=== PATIENT | male | born 1965 | race Caucasian/White ===

== ENCOUNTER 2023-01-17 19:14 | Inpatient (IN) | payer SELFPAY ==
[~2023-01-17 19:14] MED LIST: Iopamidol-370 76% 500 ML 1 ML ONE
[2023-01-17 20:19] LABS: Bacteria/HPF None Seen HPF (None Seen); Bilirubin Negative (Negative); Blood, Urine Negative (Negative); Clarity Clear (Clear); Glucose, Urine (Dipstick) Greater than 1000 mg/dL (Negative); Ketone, Urine 60 mg/dL (Negative); Leukocyte Negative Leu/uL (Negative); Nitrite Negative (Negative); Protein, Urine (Dipstick) 30 mg/dL (Neg-Trace); RBC/HPF 0-3 HPF (0-3); Specific Gravity, Urine 1.024 (1.002-1.036); Squamous Epithelial None Seen HPF (0-3); Urobilinogen Normal mg/dL (Less than 2); WBC/HPF 0-3 HPF (0-3); pH, Urine 7.5 (5.0-9.0)
[2023-01-17 20:21] LABS: Amphetamine Detected (NotDetected); Barbiturates Screen Not Detected (NotDetected); Benzodiazepine Screen Not Detected (NotDetected); Cocaine Metabolite Screen Not Detected (NotDetected); Methadone Not Detected (NotDetected); Methamphetamine Detected (NotDetected); Opiate Screen Not Detected (NotDetected); Oxycodone Screen Not Detected (NotDetected); Phencyclidine (PCP) Not Detected (NotDetected); THC/Cannabinoid Screen Detected (NotDetected); Tricyclic Screen Not Detected (NotDetected)
[2023-01-17 21:24] LABS: #Lymphocytes 1.1 thou/uL (1.20-3.40); #Monocytes 0.6 thou/uL (0.11-0.59); #Neutrophils 17.5 thou/uL (1.40-6.50); %Basophils 0.2 % (0.0-1.0); %Eosinophils 0.1 % (0.0-10.0); %Lymphocytes 5.8 % (21.0-51.0); %Monocytes 3.3 % (0.0-10.0); %Neutrophils 90.7 % (42.0-75.0); Hemoglobin 15.4 g/dL (14.0-18.0); Mean Corpuscular HGB CONC 34.5 g/dL (32.0-36.0); Mean Corpuscular Hemoglobin 31.8 pg (27.0-31.0); Mean Corpuscular Volume 92.2 fl (78.0-98.0); Mean Platelet Volume 9.2 fL (7.4-10.4); Platelet Count 382 10x3/uL (130-400); RBC Distribution Width 11.7 % (11.5-14.5); Red Blood Cell (RBC) Count 4.83 mill/uL (4.70-6.10); White Blood Cell (WBC) Count 19.4 10x3/uL (4.8-10.8)
[2023-01-17 21:39] LABS: ALT (SGPT) 15 U/L (8-55); AST (SGOT) 14 U/L (5-34); Acetaminophen Less than 10.0 mcg/mL (10.0-30.0); Albumin 4.5 g/dL (3.5-5.0); Alcohol Less than 10 mg/dL (Less than 10); Alkaline Phosphatase 174 U/L (40-110); Anion Gap 31 mmol/L (10-20); BUN (Urea Nitrogen) 20 mg/dL (8.4-25.7); CK (CPK) 276 U/L (30-200); Calc. Creatinine Clearance 0 mL/min (70-130); Calcium 10.5 mg/dL (7.8-10.44); Carbon Dioxide 22 mmol/L (22-29); Chloride 92 mmol/L (98-107); Estimated GFR 43; Globulin 3.6 g/dL (2.4-3.5); Potassium 4.8 mmol/L (3.5-5.1); Protein, Total 8.1 g/dL (6.0-8.3); Salicylate Less than 8.0 mg/dL (15.0-30.0); Sodium 140 mmol/L (136-145)
[2023-01-17 21:42] LABS: Glucose 635 mg/dL (70-105)
[2023-01-17 22:06] LABS: CKMB 2.6 ng/mL (0-6.6)
[2023-01-17] MEDS ORDERED: INSULIN REGULAR IN 0.9 % NACL 100 UNIT/100 ML BAG ONE ×2 (22:13→22:28)
[2023-01-17] MEDS ORDERED: Insulin Regular 300 UNITS/3 ML VIAL ONE ×2 (22:13)
[2023-01-17 22:17] LABS: Actual Bicarbonate (HCO3v) 27 mEq/L (22-28); Base Excess 1.3 mEq/L (-2.0 to +3.0); Calcium, Ionized (venous) 1.12 mmol/L (1.16-1.32); Chloride (VBG) 93 mmol/L (98-106); Hemoglobin (Hb) 15.2 g/dL (13.1-17.2); Potassium (VBG) 5.22 mmol/L (3.70-5.30); Sodium 139.4 mmol/L (133-146); pH (venous) 7.37 (7.32-7.43)
[2023-01-17] MEDS ORDERED: Aspirin 300 MG Suppository ONE (22:32)
[2023-01-17] MEDS ORDERED: D5 1/2 NS w/20 mEq KCL 1,000 ML ONE (22:40)
[2023-01-17] MEDS ORDERED: Electrolyte Replacement Protocol 1 EACH IVPB ONE (22:48)
[2023-01-17] MEDS ORDERED: NS 0.9% w/ 20 MEQ KCL 1,000 ML IV PRN ×2 (22:48)
[2023-01-17] MEDS ORDERED: Dextrose 50% Abboject 50 ML SYRINGE SLOW IVP PRN (22:48)
[2023-01-17] MEDS ORDERED: Dextrose 5 %-0.45 % NaCl 1,000 ML IV PRN (22:48)
[2023-01-17] MEDS ORDERED: Sodium Chloride 0.9% 1,000 ML IV PRN ×4 (22:48)
[2023-01-17] MEDS ORDERED: Electrolyte Replacement Protocol FS PRN (23:00)
[2023-01-17] MEDS ORDERED: HUMULIN R 100 UNITS in Sodium Chloride 0.9% 100 ML IVPB SCH (23:00)
[2023-01-18] MEDS: Lorazepam 2 MG/ML VIAL SLOW IVP SCH ×2 (00:23→05:16)
[2023-01-18 00:27] LABS: Lactic Acid 9.3 mmol/L (0.5-2.2)
[2023-01-18 00:27] LABS: Anion Gap 25 mmol/L (10-20); BUN (Urea Nitrogen) 22 mg/dL (8.4-25.7); Calc. Creatinine Clearance 0 mL/min (70-130); Calcium 9.7 mg/dL (7.8-10.44); Carbon Dioxide 20 mmol/L (22-29); Chloride 99 mmol/L (98-107); Estimated GFR 49; Sodium 140 mmol/L (136-145)
[2023-01-18 00:31] LABS: Glucose 466 mg/dL (70-105)
[2023-01-18] MEDS ORDERED: Lorazepam 2 MG/ML VIAL IM PRN (00:47)
[2023-01-18] MEDS ORDERED: Ondansetron ODT 4 MG TAB PO PRN (00:47)
[2023-01-18] MEDS ORDERED: Lorazepam 1 MG TAB PO PRN (00:47)
[2023-01-18 00:53] VITALS: BMI 16.1
[2023-01-18 00:59] LABS: Hemoglobin A1c 11.8 % (4.0-6.0)
[2023-01-18 01:10] LABS: Magnesium 1.5 mg/dL (1.6-2.6); Phosphorus 2.9 mg/dL (2.3-4.7)
[2023-01-18] MEDS ORDERED: Vancomycin 1 GM in Premix Bag 1 BAG IVPB SCH (01:15)
[2023-01-18 01:16] LABS: Troponin I 0.052 ng/mL (< 0.028)
[2023-01-18] MEDS: Thiamine HCl 200 MG/2 ML VIAL SLOW IVP SCH (01:40)
[2023-01-18] MEDS ORDERED: Piperacillin/Tazobactam 3.375 GM in Sodium Chloride 0.9% 100 ML IVPB SCH ×2 (02:00→06:00)
[2023-01-18 02:37] LABS: Anion Gap 24 mmol/L (10-20); BUN (Urea Nitrogen) 20 mg/dL (8.4-25.7); Calc. Creatinine Clearance 43 mL/min (70-130); Calcium 9.4 mg/dL (7.8-10.44); Carbon Dioxide 18 mmol/L (22-29); Chloride 102 mmol/L (98-107); Estimated GFR 60; Glucose 297 mg/dL (70-105); Potassium 4.3 mmol/L (3.5-5.1); Sodium 140 mmol/L (136-145)
[2023-01-18] MEDS ORDERED: Magnesium 2 GM/50 ML(in water) 2 GM in Premix Bag 1 BAG IVPB SCH (02:45)
[2023-01-18 02:48] LABS: HBCM Index 0.08 S/CO (0-0.79); HBSAg Index 0.26 S/CO (0-0.99); HIV (1/2) Antibody/Antigen Non-Reactive (NonReactive); Hep A IgM AB Non-Reactive (NonReactive); Hep A IgM S/CO 0.51 S/CO (0-0.79); Hep B Surf Ag Non-Reactive S/CO (NonReactive); Hep C IgG Ab Non-Reactive (NonReactive); Hep C Index 0.08 S/CO (0-0.79); Hepatitis B Core IgM Abs Non-Reactive (NonReactive)
[2023-01-18 03:44] LABS: Lactic Acid 6.9 mmol/L (0.5-2.2)
[2023-01-18] MEDS: D5 1/2 NS w/20 mEq KCL 1,000 ML IV PRN ×2 (03:46→07:37)
[2023-01-18 03:53] LABS: SARS-CoV-2 NAA Rapid Test Not Detected (NotDetected)
[2023-01-18 04:01] LABS: Band 10 % (5-11); Hemoglobin 13.2 g/dL (14.0-18.0); Lymphocytes 9 % (21-51); MDiff Complete? YES; Mean Corpuscular Hemoglobin 31.9 pg (27.0-31.0); Mean Corpuscular Volume 93.8 fl (78.0-98.0); Mean Platelet Volume 9.4 fL (7.4-10.4); Monocytes 3 % (0-10); Neutrophil 78 % (42-75); Platelet Count 290 10x3/uL (130-400); Platelet Morphology Comment Appears Adequate; RBC Distribution Width 11.9 % (11.5-14.5); RBC Morphology Normal; Red Blood Cell (RBC) Count 4.14 mill/uL (4.70-6.10); White Blood Cell (WBC) Count 20.4 10x3/uL (4.8-10.8)
[2023-01-18 06:16] LABS: Magnesium 1.7 mg/dL (1.6-2.6)
[2023-01-18 07:36] LABS: Anion Gap 18 mmol/L (10-20); BUN (Urea Nitrogen) 22 mg/dL (8.4-25.7); Calc. Creatinine Clearance 63 mL/min (70-130); Calcium 8.7 mg/dL (7.8-10.44); Carbon Dioxide 21 mmol/L (22-29); Chloride 105 mmol/L (98-107); Estimated GFR 95; Glucose 168 mg/dL (70-105); Potassium 4.5 mmol/L (3.5-5.1); Sodium 139 mmol/L (136-145)
[2023-01-18 07:42] LABS: Troponin I 0.057 ng/mL (< 0.028)
[2023-01-18] MEDS ORDERED: Dextrose 5% in Water 1,000 ML IV PRN (08:44)
[2023-01-18] MEDS: Folic Acid 1 MG TAB PO SCH (08:54)
[2023-01-18] MEDS: Lactated Ringer's 1,000 ML IV SCH ×2 (08:56→18:04)
[2023-01-18] MEDS: Multivit, Therapeutic 1 TAB PO SCH (08:56)
[2023-01-18] MEDS: hydrALAZINE 20 MG/ML VIAL SLOW IVP PRN (09:12)
[2023-01-18 10:30] LABS: Anion Gap 20 mmol/L (10-20); BUN (Urea Nitrogen) 22 mg/dL (8.4-25.7); Calc. Creatinine Clearance 55 mL/min (70-130); Calcium 8.9 mg/dL (7.8-10.44); Carbon Dioxide 19 mmol/L (22-29); Chloride 101 mmol/L (98-107); Estimated GFR 82; Glucose 319 mg/dL (70-105); Potassium 5.2 mmol/L (3.5-5.1); Sodium 135 mmol/L (136-145)
[2023-01-18 11:25] LABS: Syphilis Antibody Nonreactive (Nonreactive); Syphilis Antibody Index 0.03 S/CO (<1.00 Non-Reactive)
[2023-01-18] MEDS ORDERED: Insulin Glargine 30 UNITS/0.3 ML VIAL SC SCH ×2 (12:00→16:30)
[2023-01-18] MEDS: HumaLOG 300 UNITS/3 ML VIAL SC PRN ×2 (12:12→20:02)
[2023-01-18 13:18] LABS: Anion Gap 17 mmol/L (10-20); BUN (Urea Nitrogen) 20 mg/dL (8.4-25.7); Calc. Creatinine Clearance 61 mL/min (70-130); Carbon Dioxide 20 mmol/L (22-29); Chloride 101 mmol/L (98-107); Estimated GFR 91; Glucose 329 mg/dL (70-105); Potassium 4.6 mmol/L (3.5-5.1); Sodium 133 mmol/L (136-145)
[2023-01-18] MEDS: Cefepime 2 GM in Sodium Chloride 0.9% 100 ML IVPB SCH (19:53)
[2023-01-18] MEDS: Bacitracin 1 PK TOP SCH (19:54)
[2023-01-18 20:34] LABS: Anion Gap 12 mmol/L (10-20); BUN (Urea Nitrogen) 15 mg/dL (8.4-25.7); Calc. Creatinine Clearance 77 mL/min (70-130); Carbon Dioxide 25 mmol/L (22-29); Chloride 103 mmol/L (98-107); Estimated GFR 105; Glucose 164 mg/dL (70-105); Sodium 136 mmol/L (136-145)
[2023-01-19] MEDS ORDERED: Lorazepam 1 MG TAB PO PRN (00:47)
[2023-01-19] MEDS: Vancomycin HCl 750 MG in Sodium Chloride 0.9% 250 ML 250 ML IVPB SCH (01:47)
[2023-01-19] MEDS: Thiamine HCl 200 MG/2 ML VIAL SLOW IVP SCH (01:47)
[2023-01-19 04:17] LABS: #Eosinphils 0.1 thou/uL (0.0-0.7); #Lymphocytes 2.5 thou/uL (1.20-3.40); #Monocytes 0.8 thou/uL (0.11-0.59); #Neutrophils 10.2 thou/uL (1.40-6.50); %Basophils 0.3 % (0.0-1.0); %Eosinophils 0.8 % (0.0-10.0); %Lymphocytes 18.4 % (21.0-51.0); %Monocytes 5.8 % (0.0-10.0); %Neutrophils 74.7 % (42.0-75.0); Hemoglobin 11.5 g/dL (14.0-18.0); Mean Corpuscular HGB CONC 33.2 g/dL (32.0-36.0); Mean Corpuscular Hemoglobin 31.1 pg (27.0-31.0); Mean Corpuscular Volume 93.7 fl (78.0-98.0); Mean Platelet Volume 9.1 fL (7.4-10.4); Platelet Count 245 10x3/uL (130-400); RBC Distribution Width 11.8 % (11.5-14.5); Red Blood Cell (RBC) Count 3.69 mill/uL (4.70-6.10); White Blood Cell (WBC) Count 13.6 10x3/uL (4.8-10.8)
[2023-01-19 04:37] LABS: Anion Gap 10 mmol/L (10-20); BUN (Urea Nitrogen) 14 mg/dL (8.4-25.7); Calc. Creatinine Clearance 92 mL/min (70-130); Calcium 8.7 mg/dL (7.8-10.44); Carbon Dioxide 25 mmol/L (22-29); Chloride 103 mmol/L (98-107); Estimated GFR 110; Glucose 152 mg/dL (70-105); Potassium 3.7 mmol/L (3.5-5.1); Sodium 134 mmol/L (136-145)
[2023-01-19] MEDS: Lactated Ringer's 1,000 ML IV SCH ×2 (05:40→17:19)
[2023-01-19] MEDS: Bacitracin 1 PK TOP SCH ×2 (09:12→21:37)
[2023-01-19] MEDS: Cefepime 2 GM in Sodium Chloride 0.9% 100 ML IVPB SCH ×2 (09:12→21:40)
[2023-01-19] MEDS: Insulin Glargine 30 UNITS/0.3 ML VIAL SC SCH (09:12)
[2023-01-19] MEDS: Folic Acid 1 MG TAB PO SCH (09:12)
[2023-01-19] MEDS: Multivit, Therapeutic 1 TAB PO SCH (09:13)
[2023-01-19] MEDS ORDERED: cloNIDine 0.2mg/24 Hour PATCH TD SCH (10:45)
[2023-01-19 11:32] LABS: Lactic Acid 0.9 mmol/L (0.5-2.2)
[2023-01-20] MEDS ORDERED: Lorazepam 1 MG TAB PO PRN (00:47)
[2023-01-20] MEDS: Lactated Ringer's 1,000 ML IV SCH ×2 (01:04→15:06)
[2023-01-20] MEDS: Thiamine HCl 200 MG/2 ML VIAL SLOW IVP SCH (01:04)
[2023-01-20 01:56] LABS: #Eosinphils 0.1 thou/uL (0.0-0.7); #Monocytes 0.7 thou/uL (0.11-0.59); %Basophils 0.5 % (0.0-1.0); %Eosinophils 0.7 % (0.0-10.0); %Lymphocytes 22.8 % (21.0-51.0); %Monocytes 7.6 % (0.0-10.0); %Neutrophils 68.4 % (42.0-75.0); Hemoglobin 11.9 g/dL (14.0-18.0); Mean Corpuscular HGB CONC 34.2 g/dL (32.0-36.0); Mean Corpuscular Hemoglobin 31.8 pg (27.0-31.0); Mean Corpuscular Volume 92.8 fl (78.0-98.0); Mean Platelet Volume 8.5 fL (7.4-10.4); Platelet Count 229 10x3/uL (130-400); RBC Distribution Width 11.5 % (11.5-14.5); Red Blood Cell (RBC) Count 3.74 mill/uL (4.70-6.10); White Blood Cell (WBC) Count 8.8 10x3/uL (4.8-10.8)
[2023-01-20 02:25] LABS: Anion Gap 12 mmol/L (10-20); BUN (Urea Nitrogen) 14 mg/dL (8.4-25.7); Calc. Creatinine Clearance 88 mL/min (70-130); Calcium 8.8 mg/dL (7.8-10.44); Carbon Dioxide 25 mmol/L (22-29); Chloride 103 mmol/L (98-107); Estimated GFR 109; Glucose 68 mg/dL (70-105); Potassium 3.6 mmol/L (3.5-5.1); Sodium 136 mmol/L (136-145)
[2023-01-20] MEDS: Vancomycin HCl 750 MG in Sodium Chloride 0.9% 250 ML 250 ML IVPB SCH ×2 (02:57→15:42)
[2023-01-20 04:29] LABS: Vancomycin, Trough 4.6 ug/mL
[2023-01-20] MEDS: Folic Acid 1 MG TAB PO SCH (08:38)
[2023-01-20] MEDS: Insulin Glargine 30 UNITS/0.3 ML VIAL SC SCH (08:38)
[2023-01-20] MEDS: Bacitracin 1 PK TOP SCH ×2 (08:38→19:39)
[2023-01-20] MEDS: Multivit, Therapeutic 1 TAB PO SCH (08:38)
[2023-01-20] MEDS: Cefepime 2 GM in Sodium Chloride 0.9% 100 ML IVPB SCH ×2 (08:39→19:38)
[2023-01-21] MEDS ORDERED: Lorazepam 0.5 MG TAB PO PRN (00:47)
[2023-01-21] MEDS: Vancomycin HCl 750 MG in Sodium Chloride 0.9% 250 ML 250 ML IVPB SCH (02:08)
[2023-01-21] MEDS: HumaLOG 300 UNITS/3 ML VIAL SC PRN ×2 (05:29→17:49)
[2023-01-21 06:46] LABS: #Eosinphils 0.1 thou/uL (0.0-0.7); #Lymphocytes 1.5 thou/uL (1.20-3.40); #Monocytes 0.5 thou/uL (0.11-0.59); #Neutrophils 3.8 thou/uL (1.40-6.50); %Basophils 0.8 % (0.0-1.0); %Eosinophils 1.9 % (0.0-10.0); %Monocytes 7.6 % (0.0-10.0); %Neutrophils 64.7 % (42.0-75.0); Hemoglobin 12.1 g/dL (14.0-18.0); Mean Corpuscular HGB CONC 34.5 g/dL (32.0-36.0); Mean Corpuscular Hemoglobin 32.1 pg (27.0-31.0); Mean Corpuscular Volume 92.8 fl (78.0-98.0); Platelet Count 243 10x3/uL (130-400); RBC Distribution Width 11.5 % (11.5-14.5); Red Blood Cell (RBC) Count 3.79 mill/uL (4.70-6.10); White Blood Cell (WBC) Count 5.9 10x3/uL (4.8-10.8)
[2023-01-21 06:59] LABS: BUN (Urea Nitrogen) 13 mg/dL (8.4-25.7); Calc. Creatinine Clearance 93 mL/min (70-130); Calcium 8.8 mg/dL (7.8-10.44); Carbon Dioxide 27 mmol/L (22-29); Estimated GFR 107; Glucose 203 mg/dL (70-105); Potassium 3.9 mmol/L (3.5-5.1); Sodium 134 mmol/L (136-145)
[2023-01-21 07:35] LABS: Anion Gap 14 mmol/L (10-20); Chloride 101 mmol/L (98-107)
[2023-01-21] MEDS ORDERED: FLU VACC QS2022-23(6MOS UP)/PF 60 MCG/0.5 ML SYRINGE IM ONE (09:00)
[2023-01-21] MEDS ORDERED: Thiamine 100 MG TAB PO SCH (09:00)
[2023-01-21] MEDS: Cefepime 2 GM in Sodium Chloride 0.9% 100 ML IVPB SCH (09:34)
[2023-01-21] MEDS: Insulin Glargine 30 UNITS/0.3 ML VIAL SC SCH (09:45)
[2023-01-21] MEDS: Multivit, Therapeutic 1 TAB PO SCH (09:47)
[2023-01-21] MEDS: Folic Acid 1 MG TAB PO SCH (09:48)
[2023-01-21] MEDS: Bacitracin 1 PK TOP SCH (09:49)
[2023-01-21] MEDS: hydrALAZINE 20 MG/ML VIAL SLOW IVP PRN (12:39)
[2023-01-21 13:40] LABS: Vancomycin, Trough 8.7 ug/mL
[2023-01-21] MEDS ORDERED: Cephalexin 250 MG CAP PO SCH (14:00)
[2023-01-21 16:38] VITALS: BP 153/94; TEMP 97.2
[2023-01-27] MEDS ORDERED: cloNIDine 0.2mg/24 Hour PATCH TD SCH (09:00)
== END 2023-01-21 19:22 | disposition left against medical advice (07) | DRG 871 ==
LOC: ERS 19:14 → CCU 23:55 → IMCU/EMU 01-19 12:52 → T4-B 01-20 14:55
PROVIDERS: ADMIT Family Medicine; ATTEND Family Medicine
PROC: 3E03329 Introduction of Other Anti-infective into Peripheral Vein, Percutaneous Approach (ICD-10-PCS; principal; 2023-01-17)
PROC: HZ2ZZZZ Detoxification Services for Substance Abuse Treatment (ICD-10-PCS; 2023-01-17)
DX: A41.9 Sepsis, unspecified organism (principal); E11.00 Type 2 diabetes mellitus with hyperosmolarity without nonketotic hyperglycemic-hyperosmolar coma (NKHHC); G93.41 Metabolic encephalopathy; E87.20 Acidosis, unspecified; N17.9 Acute kidney failure, unspecified; E46 Unspecified protein-calorie malnutrition; Z68.1 Body mass index [BMI] 19.9 or less, adult; I10 Essential (primary) hypertension; F15.10 Other stimulant abuse, uncomplicated; F10.129 Alcohol abuse with intoxication, unspecified; Y90.0 Blood alcohol level of less than 20 mg/100 ml; F14.129 Cocaine abuse with intoxication, unspecified; G93.89 Other specified disorders of brain; Z89.512 Acquired absence of left leg below knee; Z78.1 Physical restraint status
CPT/HCPCS: 36415; 36416; 51701; 70450; 71045; 72125; 74174; 80048; 80053; 80074; 80202; 80306; 80307; 81003; 81015; 82010; 82550; 82553; 82805; 83036; 83605; 83735; 83930; 84100; 84145; 84425; 84443; 84484; 85025; 86780; 87040; 87077; 87389; 93005; 95816; 95819; 95957; 96361; 96365; 96366; 96368; 97139; J0360; J0692; J1650; J1815; J2060; J2543; J3370; J3370-JW; J3411; J3475; J3480; J3490; J7050; J7120; J7999; Q9967; U0002

== ENCOUNTER 2024-02-12 20:25 | Inpatient (IN) | payer SELFPAY ==
[2024-02-12] MEDS ORDERED: Pantoprazole 40 MG VIAL ONE (20:31)
[2024-02-12] MEDS ORDERED: fentaNYL 50 mcg/mL 1 mL Vial ONE (20:31)
[2024-02-12 20:58] LABS: #Monocytes 0.9 thou/uL (0.11-0.59); #Neutrophils 17.1 thou/uL (1.40-6.50); %Basophils 0.2 % (0.0-1.0); %Eosinophils 0.1 % (0.0-10.0); %Lymphocytes 7.8 % (21.0-51.0); %Monocytes 4.7 % (0.0-10.0); %Neutrophils 86.5 % (42.0-75.0); Hematocrit 40.6 % (42.0-52.0); Hemoglobin 13.8 g/dL (14.0-18.0); Mean Corpuscular Hemoglobin 29.6 pg (27.0-31.0); Mean Corpuscular Volume 87.1 fl (78.0-98.0); Mean Platelet Volume 11.4 fL (7.4-10.4); Platelet Count 345 10x3/uL (130-400); RBC Distribution Width 13.2 % (11.5-14.5); Red Blood Cell (RBC) Count 4.66 mill/uL (4.70-6.10); White Blood Cell (WBC) Count 19.8 10x3/uL (4.8-10.8)
[2024-02-12 21:16] LABS: ALT (SGPT) 12 U/L (8-55); AST (SGOT) 15 U/L (5-34); Alkaline Phosphatase 181 U/L (40-110); Anion Gap 23 mmol/L (10-20); BUN (Urea Nitrogen) 36 mg/dL (8.4-25.7); Bilirubin, Total 0.6 mg/dL (0.2-1.2); CK (CPK) 128 U/L (30-200); Calc. Creatinine Clearance 0 mL/min (70-130); Calcium 9.8 mg/dL (7.8-10.44); Carbon Dioxide 23 mmol/L (22-29); Chloride 95 mmol/L (98-107); Estimated GFR 49; Globulin 3.4 g/dL (2.4-3.5); Lipase 7 U/L (8-78); Potassium 4.6 mmol/L (3.5-5.1); Protein, Total 7.4 g/dL (6.0-8.3); Sodium 136 mmol/L (136-145)
[2024-02-12] MEDS ORDERED: Magnesium 2 GM/50 ML BAG (IN WATER) ONE (21:19)
[2024-02-12] MEDS ORDERED: dilTIAZem 25 MG/5 ML VIAL ONE (21:19)
[2024-02-12] MEDS ORDERED: Digoxin 0.5 MG/2 ML AMP ONE (21:19)
[2024-02-12 21:20] LABS: Critical Call Chemistry NUR.MVB@2119; Glucose 563 mg/dL (70-105); Troponin I 0.059 ng/mL (< 0.028)
[2024-02-12] MEDS ORDERED: Insulin Regular 300 UNITS/3 ML VIAL ONE (21:55)
[2024-02-12] MEDS ORDERED: Cefepime 2 GM VIAL ONE (22:15)
[2024-02-12 22:44] LABS: Actual Bicarbonate (HCO3v) 20.7 mEq/L (22-28); Base Excess -4.3 mEq/L (-2.0 to +3.0); Calcium, Ionized (venous) 1.04 mmol/L (1.16-1.32); Chloride (VBG) 97 mmol/L (98-106); Hematocrit-VBG 39 % (42.0-52.0); Hemoglobin (Hb) 13.4 g/dL (13.1-17.2); Potassium (VBG) 5.63 mmol/L (3.70-5.30); Sodium 135 mmol/L (133-146); pH (venous) 7.357 (7.32-7.43)
[2024-02-12 22:49] LABS: Acetaminophen Less than 10 mcg/mL (10.0-30.0); Alcohol Less than 10.0 mg/dL (Less than 10); Salicylate Less than 8.0 mg/dL (15.0-30.0)
[2024-02-12] MEDS ORDERED: Vancomycin 1 GM/200 ML (FROZEN) BAG ONE (23:26)
[2024-02-12] MEDS ORDERED: Folic Acid 5 MG/ML MDV SC SCH (23:45)
[2024-02-12] MEDS ORDERED: Octreotide Acetate 1,250 MCG in Sodium Chloride 0.9% 250 ML 250 ML IVPB SCH (23:45)
[2024-02-12] MEDS ORDERED: Ondansetron ODT 4 MG TAB PO PRN (23:52)
[2024-02-12] MEDS ORDERED: Acetaminophen 325 MG TAB PO PRN (23:52)
[2024-02-12] MEDS ORDERED: Acetaminophen 650 MG Suppository PR PRN (23:52)
[2024-02-12] MEDS ORDERED: Dextrose 5% in Water 1,000 ML IV PRN (23:55)
[2024-02-12] MEDS ORDERED: HumaLOG 300 UNITS/3 ML VIAL SC PRN (23:55)
[2024-02-12] MEDS ORDERED: Dextrose 50% Abboject 50 ML SYRINGE SLOW IVP PRN (23:55)
[2024-02-12] MEDS ORDERED: Glucagon 1 MG/ML KIT IM PRN (23:55)
[2024-02-13 00:07] LABS: Magnesium 2.2 mg/dL (1.6-2.6); Phosphorus 3.6 mg/dL (2.3-4.7)
[2024-02-13 00:14] VITALS: BMI 13.2
[2024-02-13] MEDS ORDERED: Cyanocobalamin 1000 MCG/ML VIAL IM SCH (00:30)
[2024-02-13 00:47] LABS: Bacteria/HPF None Seen HPF (None Seen); Bilirubin Negative (Negative); Blood, Urine Trace (Negative); CAUTI Indications for Culture Alt mental st,lethar; Clarity Clear (Clear); Glucose, Urine (Dipstick) Greater than 1000 mg/dL (Negative); Ketone, Urine Negative (Negative); Leukocyte Negative Leu/uL (Negative); Nitrite Negative (Negative); Protein, Urine (Dipstick) 10 mg/dL (Neg-Trace); RBC/HPF 0-3 HPF (0-3); Specific Gravity, Urine 1.039 (1.002-1.036); Squamous Epithelial None Seen HPF (0-3); Urobilinogen Normal mg/dL (Less than 2); WBC/HPF 0-3 HPF (0-3)
[2024-02-13 00:48] LABS: Urine Culture Reflex No No
[2024-02-13] MEDS: Dextrose 5%-Lactated Ringers 1,000 ML IV SCH (00:55)
[2024-02-13 00:56] LABS: Amphetamine Detected (NotDetected); Barbiturates Screen Not Detected (NotDetected); Benzodiazepine Screen Not Detected (NotDetected); Cocaine Metabolite Screen Not Detected (NotDetected); Methadone Not Detected (NotDetected); Methamphetamine Detected (NotDetected); Opiate Screen Not Detected (NotDetected); Oxycodone Screen Not Detected (NotDetected); Phencyclidine (PCP) Not Detected (NotDetected); THC/Cannabinoid Screen Detected (NotDetected); Tricyclic Screen Not Detected (NotDetected)
[2024-02-13] MEDS ORDERED: Thiamine HCl 200 MG/2 ML VIAL ONE (01:15)
[2024-02-13] MEDS: Thiamine HCl 200 MG/2 ML VIAL SLOW IVP SCH (01:19)
[2024-02-13] MEDS: Folic Acid 0.4 MG in Syringe 0 ML SC SCH (01:23)
[2024-02-13] MEDS ORDERED: Metoprolol Tartrate 5 MG (5 mL) VIAL ONE (01:26)
[2024-02-13] MEDS: Metoprolol Tartrate 5 MG (5 mL) VIAL IVP SCH (01:29)
[2024-02-13] MEDS ORDERED: Piperacillin/Tazobactam 3.375 GM VIAL ONE ×2 (01:34→05:26)
[2024-02-13 01:37] LABS: Critical Call Chem-Lactate NUR.KB14@0137; Lactic Acid 4.3 mmol/L (0.5-2.2)
[2024-02-13] MEDS: Piperacillin/Tazobactam 3.375 GM in Sodium Chloride 0.9% 100 ML IVPB SCH ×2 (01:38→05:41)
[2024-02-13] MEDS: Lactated Ringer's 1,000 ML IV SCH (01:42)
[2024-02-13] MEDS ORDERED: HumaLOG 300 UNITS/3 ML VIAL ONE (04:04)
[2024-02-13] MEDS: HumaLOG 300 UNITS/3 ML VIAL SC PRN (04:07)
[2024-02-13] MEDS ORDERED: Sodium Chloride 0.9% 100 ML ONE (05:27)
[2024-02-13 05:42] LABS: #Basophils 0.1 thou/uL (0.0-0.2); #Monocytes 0.8 thou/uL (0.11-0.59); #Neutrophils 13.9 thou/uL (1.40-6.50); %Basophils 0.3 % (0.0-1.0); %Eosinophils 0.1 % (0.0-10.0); %Lymphocytes 14.5 % (21.0-51.0); %Monocytes 4.6 % (0.0-10.0); Hematocrit 33.4 % (42.0-52.0); Hemoglobin 11.2 g/dL (14.0-18.0); Mean Corpuscular HGB CONC 33.5 g/dL (32.0-36.0); Mean Corpuscular Hemoglobin 30.2 pg (27.0-31.0); Mean Platelet Volume 11.3 fL (7.4-10.4); Platelet Count 271 10x3/uL (130-400); RBC Distribution Width 13.2 % (11.5-14.5); Red Blood Cell (RBC) Count 3.71 mill/uL (4.70-6.10); White Blood Cell (WBC) Count 17.4 10x3/uL (4.8-10.8)
[2024-02-13] MEDS ORDERED: Piperacillin/Tazobactam 4.5 GM in Sodium Chloride 0.9% 100 ML IVPB SCH (06:00)
[2024-02-13 06:07] LABS: Anion Gap 12 mmol/L (10-20); BUN (Urea Nitrogen) 27 mg/dL (8.4-25.7); Calc. Creatinine Clearance 52 mL/min (70-130); Calcium 8.4 mg/dL (7.8-10.44); Carbon Dioxide 25 mmol/L (22-29); Chloride 105 mmol/L (98-107); Estimated GFR 94; Glucose 151 mg/dL (70-105); Sodium 138 mmol/L (136-145)
[2024-02-13 06:15] LABS: Lactic Acid 2.5 mmol/L (0.5-2.2)
[2024-02-13] MEDS ORDERED: Pantoprazole 40 MG VIAL ONE (10:30)
[2024-02-13] MEDS: Pantoprazole 40 MG VIAL IVP SCH (10:48)
[2024-02-13] MEDS ORDERED: FLU VACC QS2023-24(6MOS UP)/PF 60 MCG/0.5 ML SYRINGE IM ONE (15:30)
[2024-02-13 16:29] VITALS: TEMP 98
[2024-02-13] MEDS: Ondansetron PF 4 MG/2 ML Vial IVP PRN (20:40)
[2024-02-13 22:04] VITALS: BP 105/71
[2024-02-13] MEDS ORDERED: traMADol HCl 50 MG TAB PO PRN (23:03)
[2024-02-13] MEDS ORDERED: Melatonin 3 MG TAB PO PRN (23:04)
[2024-02-14 05:44] LABS: #Basophils 0.1 thou/uL (0.0-0.2); #Eosinphils 0.1 thou/uL (0.0-0.7); #Monocytes 0.7 thou/uL (0.11-0.59); %Basophils 0.5 % (0.0-1.0); %Eosinophils 0.6 % (0.0-10.0); %Lymphocytes 20.4 % (21.0-51.0); %Monocytes 5.9 % (0.0-10.0); %Neutrophils 72.3 % (42.0-75.0); Hematocrit 35.7 % (42.0-52.0); Hemoglobin 11.8 g/dL (14.0-18.0); Mean Corpuscular HGB CONC 33.1 g/dL (32.0-36.0); Mean Corpuscular Volume 90.8 fl (78.0-98.0); Mean Platelet Volume 11.7 fL (7.4-10.4); Platelet Count 265 10x3/uL (130-400); Red Blood Cell (RBC) Count 3.93 mill/uL (4.70-6.10); White Blood Cell (WBC) Count 11.1 10x3/uL (4.8-10.8)
[2024-02-14 06:15] LABS: Anion Gap 16 mmol/L (10-20); BUN (Urea Nitrogen) 19 mg/dL (8.4-25.7); CK (CPK) 62 U/L (30-200); Calc. Creatinine Clearance 44 mL/min (70-130); Calcium 8.8 mg/dL (7.8-10.44); Carbon Dioxide 23 mmol/L (22-29); Chloride 103 mmol/L (98-107); Estimated GFR 76; Glucose 193 mg/dL (70-105); Potassium 3.7 mmol/L (3.5-5.1); Sodium 138 mmol/L (136-145)
[2024-02-14 09:26] LABS: Lactic Acid 0.8 mmol/L (0.5-2.2)
[2024-02-14] MEDS: Piperacillin/Tazobactam 3.375 GM in Sodium Chloride 0.9% 100 ML IVPB SCH (11:11)
== END 2024-02-14 14:05 | disposition left against medical advice (07) | DRG 871 ==
LOC: ERS 20:25 → ERHOLD 23:35 → 2NO 02-13 14:44
PROVIDERS: ADMIT Student in an Organized Health Care Education/Training Program; ATTEND Internal Medicine
DX: A41.9 Sepsis, unspecified organism (principal); E43 Unspecified severe protein-calorie malnutrition; E87.20 Acidosis, unspecified; K92.0 Hematemesis; N17.9 Acute kidney failure, unspecified; R45.851 Suicidal ideations; E87.1 Hypo-osmolality and hyponatremia; Z68.1 Body mass index [BMI] 19.9 or less, adult; K76.0 Fatty (change of) liver, not elsewhere classified; I48.0 Paroxysmal atrial fibrillation; F15.10 Other stimulant abuse, uncomplicated; K80.20 Calculus of gallbladder without cholecystitis without obstruction; E11.65 Type 2 diabetes mellitus with hyperglycemia; Z79.899 Other long term (current) drug therapy; Z79.4 Long term (current) use of insulin; Z87.820 Personal history of traumatic brain injury; Z89.512 Acquired absence of left leg below knee; Z98.890 Other specified postprocedural states
CPT/HCPCS: 36415; 36416; 71045; 74177; 80048; 80053; 80306; 80307; 81001; 82010; 82140; 82550; 82805; 83036; 83605; 83690; 83735; 84100; 84484; 85025; 86850; 86900; 86901; 87040; 93005; 93306; C9113; J0692; J1160; J1815; J2405; J2543; J3010; J3370-JW; J3411; J3475; J3490; J7120